=== PATIENT | female | born 1985 | race Caucasian/White ===

== ENCOUNTER 2023-12-28 15:29 | Outpatient (CLI) | payer OTHER ==
--- NOTE | 2023-12-28 16:40 | Ultrasound Report ---
PROCEDURE: Soft Tissue Head or Neck INDICATIONS: HAIR LOSS TECHNIQUE: Real-time scanning was performed of the thyroid gland, with image documentation. COMPARISON: None FINDINGS: Right: Thyroid lobe measures 5.9 x 1.4 x 1.9 cm, and is homogeneous in echotexture. Left: Thyroid lobe measures 5.9 x 1.2 x 1.7 cm, and is homogenous in echotexture. Isthmus: 0.4 cm thick. Benign appearing lymph node with fatty hilum posterior to the right thyroid gland measuring 1.3 x 0.5 x 1.1 cm. Nodule number: One Location: Right mid Size: 0.5 x 0.4 x 0.3 cm. Composition: Solid (2 points). Echogenicity: Hypoechoic (2 points). Shape: wider than tall (0 points). Margins: Smooth (0 points). Echogenic foci: None (0 points). Total points: 4 ACR TI-RADS category: TI-RADS 4: Moderately suspicious. Nodule number: Two Location: Left inferior Size: 0.4 x 0.4 x 0.3 cm. Composition: Cystic / almost completely cystic (0 points). Echogenicity: Anechoic (0 points). Shape: wider than tall (0 points). Margins: Smooth (0 points). Echogenic foci: None (0 points). Total points: 0 ACR TI-RADS category: TI-RADS 1: Benign. IMPRESSION: Bilateral thyroid nodules. Based on size and appearance, no additional follow-up needed. ACR TI-RADS definitions and recommendations: TI-RADS 1 (benign): 0 points. FNA not needed. TI-RADS 2 (not suspicious): 2 points. FNA not needed. TI-RADS 3 (mildly suspicious): 3 points. "FNA if 2.5 cm or larger, follow up if 1.5 cm or larger (at 1, 3, and 5 years). TI-RADS 4 (moderately suspicious): 4-6 points. "FNA if 1.5 cm or larger, follow up if 1 cm or larger (at 1, 2, 3, and 5 years). TI-RADS 5 (highly suspicious): 7 points or more. "FNA if 1 cm or larger, follow up if 0.5 cm or larger (every year for 5 years). Reviewed by: Marti Urbina MD on 12/28/2023 4:38 PM PST Approved by: Marti Urbina MD on 12/28/2023 4:38 PM PST Station ID: [id number]
== END 2023-12-28 15:30 | disposition home or self-care (01) ==
LOC: DI 15:29
PROVIDERS: ATTEND Nurse Practitioner Family
DX: L65.9 Nonscarring hair loss, unspecified (principal); E04.2 Nontoxic multinodular goiter